=== PATIENT | female | born 1960 | race Caucasian/White ===

== ENCOUNTER 2023-10-19 00:38 | Emergency (ER) | payer OTHER, SELFPAY ==
[2023-10-19 00:39] VITALS: BP 171/98
[2023-10-19 01:15] LABS: Urine Albumin Trace (Neg - Trace); Urine Bilirubin 1+ (Negative); Urine Character Clear (Clear); Urine Color Yellow; Urine Glucose Negative (Negative); Urine Ketone Trace (Negative); Urine Leukocyte Trace (Negative); Urine Nitrite Negative (Negative); Urine Occult Blood Trace (Negative); Urine Specific Gravity 1.025 (<1.030); Urine Urobilinogen Negative (Neg - 1+)
[2023-10-19 01:37] LABS: Urine Bacteria Few (Negative); Urine Calcium Oxalate Crystals Seen; Urine Mucus Few; Urine Squamous Cell >30 /LPF (Few); Urine White Cell 16-20 /HPF (0-5)
[2023-10-19] MEDS: MONISTAT 7 VAGINAL CREAM 1 APPLIC VAG (01:42)
--- NOTE | 2023-10-19 01:44 | ED.GENMED ---
History of Present Illness
General
Chief Complaint: Urinary Symptoms
Time Seen by Provider: 10/19/23 00:50
Travel History
Have you had any contact with someone who has COVID-19?: No
Do you have any symptoms of coronavirus? Fever > 100 degrees, chills, cough, shortness of breath, sore throat, loss of taste or smell, muscle aches, or headache?: No
History of Present Illness
History of Present Illness:
63-year-old female presents to the emergency department for evaluation of dysuria and vaginal discomfort beginning late last week. She states that she was treated for a UTI approximately a week and a half ago with a 5-day course of Cipro and the
symptoms began within approximately 5 days. She was seen by urgent care 2 days ago where urinalysis reportedly was negative for UTI. Feels as though she is retaining urine.
Review of Systems
Review of Systems
Allergies reviewed?: Yes
All Other Systems: ROS reviewed and negative except as documented in HPI and ROS
Phy Exam
Physical Exam
Physical Exam:
GEN: Well appearing, NAD, WDWN
HEENT: Oral mucosa moist, no scleral icterus
Cardiac: Regular rate
Lung: No respiratory distress, no tachypnea
Genitourinary: Internal labial/vulvar erythema with thick white exudates
MSK: No gross deformity or injuries
Skin: Good color, no pallor or jaundice, no rashes
Neuro: AO x3, moves all extremities freely
Psych: Calm, cooperative
Course
Orders/Labs/Results
Orders:
Orders
10/19/23 01:00
Urinalysis Reflex To Culture Urgent
Date Specimen was Collected: 10/19/23
Time Specimen was Collected: 00:58
Urine Microscopic Reflex Cult Urgent
Urine Culture Urgent
OLIVIA Source: U
Specimen Description:
Date Specimen was Collected: 10/19/23
Time Specimen was Collected: 00:58
10/19/23 01:18
Miconazole Nitrate [Monistat 7 Vaginal Cream] 1 applic VAG NOW STA
10/19/23 02:00
Fluconazole [Diflucan] 150 mg PO NOW STA
Abnormal Lab Results
10/19/23
01:00
Urine Ketones Trace A
(Negative)
Ur Occult Blood Reflex Trace A
(Negative)
Urine Bilirubin 1+ A
(Negative)
Leukocyte Esterase Rfl Trace A
(Negative)
Urine RBC 3-6 A /HPF
(0-2)
Urine WBC (Reflex) 16-20 A /HPF
(0-5)
Urine Bacteria (Reflex) Few A
(Negative)
Vital Signs
Initial and Last Documented VS:
Initial Vital Signs
Temp Pulse Resp BP Pulse Ox
98.4 F 69 16 171/98 98
10/19/23 00:39 10/19/23 00:39 10/19/23 00:39 10/19/23 00:39 10/19/23 00:39
Last Documented Vital Signs
Temp Pulse Resp BP Pulse Ox
98.4 F 69 16 171/98 98
10/19/23 00:39 10/19/23 00:39 10/19/23 00:39 10/19/23 00:39 10/19/23 00:39
MDM/Problems Addressed
MDM/Problems Addressed:
Urinalysis appears contaminated. Exam is consistent with candidiasis likely secondary to recent antibiotics. Will treat with single dose Diflucan, [id number] topical antifungals open are appropriate for supportive care.
*Critical Care Note
Total Time (30-74mins, 75-104mins- exclusive of procedures): Not Applicable
ED Attending Note
-
Portions of this chart may have been created with voice recognition software.� Occasional wrong word or��sound alike� substitutions may have occurred due to the inherent limitations of voice recognition software.
Discharge Plan
Departure
Patient Disposition: Home (Routine Discharge)
Date of Disposition: 10/19/23
Time of Disposition: 01:44
Patient with high blood pressure during this ER visit?: No
Discharge Problem:
Candidiasis of vulva
Instructions: Vulvovaginal yeast infection
Activity Restrictions/Additional Instructions:
The single dose of fluconazole should treat this adequately however you may require 3-5 further days of OTC anti fungal cream/vaginal suppositories if symptoms persist
Interventions
Interventions:
*Risk Screen - Suicide Last Done: 10/19/23 00:39
*Neglect/Abuse Screening Last Done: 10/19/23 00:39
*ED COVID-19 Vaccine History Last Done: 10/19/23 00:39
ED-Female Genitourinary Assessment Last Done: 10/19/23 01:04
Discharge Date and Time
Print Language: MACANESE
[2023-10-19] MEDS: DIFLUCAN 150 MG PO (02:24)
[2023-10-19 02:27] VITALS: BP 156/91
== END 2023-10-19 02:33 | disposition home or self-care (01) ==
LOC: EMR 00:38
PROVIDERS: Physician Assistant; EMERGENCY PHYSICIAN Emergency Medicine; FAMILY PHYSICIAN Nurse Practitioner
DX: B37.31 Acute candidiasis of vulva and vagina (principal); Z87.440 Personal history of urinary (tract) infections
CPT/HCPCS: 99283; 81003; 81015; 87086